=== PATIENT | female | born 1970 | race African-American/Black ===

== ENCOUNTER 2021-11-20 08:44 | Emergency (ER) | payer OTHER ==
[2021-11-20] MEDS ORDERED: METHYLPREDNISOLONE 125 MG INJ ONE (09:14)
[2021-11-20] MEDS ORDERED: LEVALBUTEROL 1.25 MG/3 ML NEB ONE (09:15)
[2021-11-20 09:31] LABS: Absolute Lymphocytes (CBC) 1.8 K/uL (0.7-4.9); Lymphocytes % 26.8 % (15.3-44.8); MCV 83.3 fL (80-100); MPV 8.3 fL (7.6-11.3); RBC Red Blood Cell Count 4.44 M/uL (3.86-4.86)
[2021-11-20 09:56] LABS: Potassium 3.6 mmol/L (3.5-5.1); Troponin High Sensitivity 4.1 pg/mL (<58.9)
--- NOTE | 2021-11-20 10:27 | RAD REPORT ---
EXAM DESCRIPTION: [facility] Single View11/20/2021 9:40 am CLINICAL HISTORY: Chest pain COMPARISON: none FINDINGS: The lungs appear clear of acute infiltrate. The heart is normal size IMPRESSION: No acute abnormalities displayed
--- NOTE | 2021-11-20 11:11 | RAD REPORT ---
EXAM DESCRIPTION: CT - Chest For Pe Angio - 11/20/2021 10:45 am CLINICAL HISTORY: Chest pain COMPARISON: None. TECHNIQUE: Dynamically enhanced axial 3 mm thick images of the chest were obtained during administra tion of <150> mL Isovue 370 IV contrast. Coronal and oblique reconstruction images were generated and reviewed. Exam utilizes a protocol for optimal evaluation of pulmonary arterial tree. Maximum intensity projections 3D imaging was utilized All CT scans are performed using dose optimization technique as appropriate and may include automated exposure control or mA/KV adjustment according to patient size. FINDINGS: The opacification of the pulmonary arteries is poor. A thoracic aortic aneurysm is not noted. A pleural effusion is not seen. A pericardial effusion is not seen. A lung consolidation is not present. IMPRESSION: The exam is nondiagnostic for detection of pulmonary embolus Clear lungs
--- NOTE | 2021-11-20 11:40 | ER ---
Nurse's Notes [facility] Name: Luly Cornejo Age: 51 yrs Sex: Female : 1970 Arrival Date: 11/20/2021 Time: 08:47 Bed 11 Private MD: Diagnosis: Acute bronchitis, unspecified Presentation: 11/20 08:53 Chief complaint: Patient states: i am coughing, wheezing, my head hurts. i have been tw2 coughing a couple of days. no fever. Coronavirus screen: cough unrelated to allergies, Client presents with at least one sign or symptom that may indicate coronavirus-19. Standard/surgical mask placed on the client. Provider contacted for isolation considerations. Ebola Screen: Patient denies travel to an Ebola-affected area in the 21 days before illness onset. Initial Sepsis Screen: Does the patient meet any 2 criteria? HR > 90 bpm. No. Patient's initial sepsis screen is negative. Does the patient have a suspected source of infection? No. Patient's initial sepsis screen is negative. Risk Assessment: Do you want to hurt yourself or someone else? Patient reports no desire to harm self or others. Note provider YAMILA Felix in triage room for assessment at this time. Onset of symptoms was November 20, 2021. 08:53 Method Of Arrival: Ambulatory tw2 08:53 Acuity: JACKIE 3 tw2 Triage Assessment: 08:57 General: Appears in no apparent distress. obese, well groomed, Behavior is calm, tw2 cooperative, appropriate for age. Pain: Complains of pain in back. EENT: Reports nasal congestion nasal discharge. Neuro: Level of Consciousness is awake, alert, obeys commands, Oriented to person, place, time, situation. Respiratory: Reports cough that is non-productive. Respiratory: Onset: The symptoms/episode began/occurred couple of days, the patient has mild shortness of breath. Musculoskeletal: Range of motion: intact in all extremities. 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 - Social history:: Smoking status: Patient reports the use of cigarette tobacco products, smokes one-half pack cigarettes per day. Screenin:58 Abuse screen: Denies threats or abuse. Nutritional screening: No deficits noted. tw2 Tuberculosis screening: No symptoms or risk factors identified. Fall Risk None identified. Assessment: 08:59 Cardiovascular: Rhythm is regular. Respiratory: Airway is patent Respiratory effort is tw2 even, unlabored, Respiratory pattern is regular, symmetrical, na. Vital Signs: 08:53 BP 128 / 98; Pulse 99; Resp 17; Temp 98.4(O); Pulse Ox 99% on R/A; Weight 79.83 kg; tw2 Height 5 ft. 4 in. (162.56 cm); 11:56 BP 136 / 82; Pulse 86; Resp 16; Pulse Ox 100% on R/A; Pain 2/10; bm7 08:53 Body Mass Index 30.21 (79.83 kg, 162.56 cm) tw2 ED Course: 08:47 Patient arrived in ED. am2 08:51 Antony Ryan PA is PHCP. cp 08:51 Cliff Mcnair DO is Attending Physician. cp 08:56 Triage completed. tw2 08:58 Arm band placed on. EKG completed in triage. Results shown to MD. tw2 09:02 Bed in low position. Call light in reach. color television console monitor on. Pulse ox on. NIBP on. tw2 09:11 Inserted saline lock: 20 gauge in right antecubital area, using aseptic technique. tw2 ,using aseptic technique. [facility]. 09:20 Olga Lidia Gutierrez, RN is Primary Nurse. iw 09:24 Influenza Screen (a \\T\\ B) Sent. kc6 09:24 COVID-19 SARS RT PCR (Document "Date of Onset" if Symptomatic) Sent. kc6 09:24 Basic Metabolic Panel Sent. kc6 09:24 CBC with Diff Sent. kc6 09:24 D-Dimer Sent. kc6 09:24 NT PRO-BNP Sent. kc6 09:24 Troponin HS Sent. kc6 09:42 XRAY Chest (1 view) In Process Unspecified. EDMS 10:47 CT Chest For PE Angio In Process Unspecified. EDMS 11:56 No provider procedures requiring assistance completed. intact, bleeding controlled, No bm7 redness/swelling at site. Pressure dressing applied. Administered Medications: 09:13 Drug: SOLU-Medrol (methylPrednisoLONE) 125 mg Route: IVP; Site: right antecubital; tw2 11:55 Follow up: Response: No adverse reaction bm7 09:15 Drug: Xopenex (levalbuterol) (3) 1.25 mg Route: Inhalation; tw2 11:55 Drug: Aspirin Chewable Tablet 324 mg Route: PO; bm7 11:55 Follow up: Response: No adverse reaction bm7 Medication: 11:56 VIS not applicable for this client. bm7 Outcome: 11:40 Discharge ordered by MD. aditya 11:56 Discharged to home ambulatory. bm7 11:56 Condition: improved 11:56 Discharge instructions given to patient, Instructed on discharge instructions, follow up and referral plans. medication usage, Demonstrated understanding of instructions, follow-up care, medications, Prescriptions given X 4. 11:57 Patient left the ED. bm7 Signatures: Dispatcher [employer] EDMS Olga Lidia Gutierrez, RN RN Antony Chaney, YAMILA PA Keren Millard, RN RN tw2 Benita Friedman am2 Wanda Funk, RN RN bm7 Christiana Guy kc6
--- NOTE | 2021-11-20 11:41 | EDPHYS ---
Physician Documentation [facility] Name: Luly Cornejo Age: 51 yrs Sex: Female : 1970 Arrival Date: 11/20/2021 Time: 08:47 Bed 11 Private MD: ED Physician Cliff Mcnair HPI: 11/20 09:00 This 51 yrs old Female presents to ER via Ambulatory with complaints of Cough, Wheezing cp > 1 Year, Chest Pressure. 09:00 The patient or guardian reports cough, that is intermittent. cp 09:00 Onset: The symptoms/episode began/occurred 2 day(s) ago. cp 09:00 Severity of symptoms: in the emergency department the symptoms are unchanged, despite cp home interventions. Associated signs and symptoms: Pertinent positives: chest pain, with cough, wheezing, Pertinent negatives: diarrhea, fever, vomiting. 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 - Social history:: Smoking status: Patient reports the use of cigarette tobacco products, smokes one-half pack cigarettes per day. ROS: 09:05 Constitutional: Negative for body aches, chills, fever, poor PO intake. cp 09:05 Eyes: Negative for injury, pain, redness, and discharge. cp 09:05 ENT: Negative for ear pain, sinus congestion, difficulty swallowing, difficulty handling secretions. 09:05 Cardiovascular: Positive for chest pain, with cough, Negative for edema, palpitations. 09:05 Respiratory: Positive for cough, with no reported sputum, shortness of breath, at rest. wheezing. 09:05 Abdomen/GI: Negative for abdominal pain, vomiting, diarrhea, constipation. 09:05 Skin: Negative for rash. 09:05 Neuro: Negative for altered mental status, dizziness, headache, syncope, weakness. 09:05 All other systems are negative. Exam: 09:07 ECG was reviewed by the Attending Physician. cp 09:10 Head/Face: Normocephalic, atraumatic. cp 09:10 Constitutional: The patient appears in no acute distress, alert, awake, non-diaphoretic, non-toxic, well developed, well nourished. 09:10 Eyes: Periorbital structures: appear normal, Conjunctiva: normal, no exudate, no cp injection, Sclera: no appreciated abnormality, Lids and lashes: appear normal, bilaterally. 09:10 ENT: External ear(s): are unremarkable, Ear canal(s): are normal, clear, TM's: dullness, bilaterally, Nose: is normal, Mouth: Lips: moist, Oral mucosa: moist, Posterior pharynx: Airway: no evidence of obstruction, patent, Tonsils: no enlargement, no erythema, no exudate, swelling, is not appreciated, erythema, that is mild, exudate, is not appreciated, Voice: is normal. 09:10 Neck: ROM/movement: is normal, is supple, without pain, no range of motions limitations, no meningismus, Lymph nodes: no appreciated lymphadenopathy. 09:10 Chest/axilla: Inspection: normal. 09:10 Cardiovascular: Rate: normal, Rhythm: regular, Edema: is not appreciated, JVD: is not appreciated. 09:10 Respiratory: the patient does not display signs of respiratory distress, Respirations: labored breathing, that is mild, Breath sounds: bronchial sounds, that are mild, are heard diffusely, stridor, is not appreciated. 09:10 Abdomen/GI: Exam negative for discomfort, distension, guarding, Inspection: abdomen appears normal. 09:10 Back: pain, is absent, ROM is normal. 09:10 Skin: cellulitis, is not appreciated, no rash present. 09:10 Neuro: Orientation: to person, place \\T\\ time. Mentation: is normal, Motor: moves all fours, strength is normal, Sensation: is normal. Vital Signs: 08:53 BP 128 / 98; Pulse 99; Resp 17; Temp 98.4(O); Pulse Ox 99% on R/A; Weight 79.83 kg; tw2 Height 5 ft. 4 in. (162.56 cm); 11:56 BP 136 / 82; Pulse 86; Resp 16; Pulse Ox 100% on R/A; Pain 2/10; bm7 08:53 Body Mass Index 30.21 (79.83 kg, 162.56 cm) tw2 MDM: 09:04 Patient medically screened. cp 11:37 Data reviewed: vital signs, nurses notes, lab test result(s), EKG, radiologic studies, cp CT scan, plain films. ED course: VSS. Discussed results of labs, EKG and CT chest that returned non-diagnostic for PE. Will treat for acute bronchitis at this time, patient declines repeat chest CT. Recommend daily baby aspirin and f/u with pcp next 2-3 days. 11/20 08:58 Order name: Basic Metabolic Panel; Complete Time: 10:29 cp 11/20 10:29 Interpretation: Normal except: GLUC 112; GFR 78. cp 11/20 08:58 Order name: CBC with Diff; Complete Time: 09:43 cp 11/20 10:29 Interpretation: Normal except: RDW 18.7; EOSINOPHIL % 11.3; BASO% 1.5; EOSA 0.8. 11/20 08:58 Order name: D-Dimer; Complete Time: 10:29 cp 11/20 10:29 Interpretation: Abnormal: D-DIMER 582. cp 11/20 08:58 Order name: NT PRO-BNP; Complete Time: 10:29 cp 11/20 08:58 Order name: Troponin HS; Complete Time: 10:29 cp 11/20 09:07 Order name: COVID-19 SARS RT PCR (Document "Date of Onset" if Symptomatic); Complete cp Time: 11:22 11/20 08:58 Order name: XRAY Chest (1 view); Complete Time: 10:29 cp 11/20 08:58 Order name: EKG; Complete Time: 08:59 cp 11/20 08:58 Order name: Cardiac monitoring; Complete Time: 09:30 cp 11/20 09:07 Order name: Influenza Screen (a \\T\\ B); Complete Time: 10:29 cp 11/20 10:30 Order name: CT Chest For PE Angio; Complete Time: 11:22 cp 11/20 11:23 Interpretation: Report reviewed. 11/20 08:58 Order name: EKG - Nurse/Tech; Complete Time: 08:59 cp 11/20 08:58 Order name: IV Saline Lock; Complete Time: 09:24 cp 11/20 08:58 Order name: Labs collected and sent; Complete Time: 09:24 cp 11/20 08:58 Order name: O2 Per Protocol; Complete Time: 09:03 cp 11/20 08:58 Order name: O2 Sat Monitoring; Complete Time: : cp EC:07 Rate is 91 beats/min. Rhythm is regular. TN interval is normal. QRS interval is normal. cp QT interval is normal. T waves are Inverted in leads III, aVR. Interpreted by me. Reviewed by me. Administered Medications: 09:13 Drug: SOLU-Medrol (methylPrednisoLONE) 125 mg Route: IVP; Site: right antecubital; tw2 11:55 Follow up: Response: No adverse reaction bm7 09:15 Drug: Xopenex (levalbuterol) (3) 1.25 mg Route: Inhalation; tw2 11:55 Drug: Aspirin Chewable Tablet 324 mg Route: PO; bm7 11:55 Follow up: Response: No adverse reaction bm7 Disposition: 17:17 Co-signature as Attending Physician, Cliff CHAVEZ was present in the emergency ms3 department and available for consultation in the care of this patient.. Disposition Summary: 11/20/21 11:40 Discharge Ordered Location: Home cp Problem: new cp Symptoms: have improved cp Condition: Stable cp Diagnosis - Acute bronchitis, unspecified cp Followup: cp - With: Private Physician - When: 2 - 3 days - Reason: Recheck today's complaints Discharge Instructions: - Acute Bronchitis, Adult cp - Steps to Quit Smoking cp - Discharge Summary Sheet tw2 - Smoking Tobacco Information, Adult cp Forms: - Work release form tw2 - Medication Reconciliation Form cp - Thank You Letter cp - Antibiotic Education cp - Prescription Opioid Use cp Prescriptions: - Bromfed DM 2-30-10 mg/5 mL Oral syrup - take 10 milliliter by ORAL route every 6 hours; 180 milliliter; Refills: 0, cp Product Selection Permitted - albuterol sulfate 90 mcg/actuation Inhalation HFA aerosol inhaler - inhale 1 puff by INHALATION route every 4-6 hours; 1 Inhaler; Refills: 0, cp Product Selection Permitted - Zithromax Z-Darrell 250 mg Oral Tablet - take 1 tablet by ORAL route as directed for 5 days Day 1 - take two (2) tablets cp one time. Day 2, 3, 4 , 5 take one (1) tablet once daily.; 6 tablet; Refills: 0, Product Selection Permitted - Medrol (Darrell) 4 mg Oral Tablets, Dose Pack - take 1 tablet by ORAL route as directed - follow package instructions; 1 cp packet; Refills: 0, Product Selection Permitted Signatures: Dispatcher [employer] Antony Matthews PA PA cp Wise, Tara, RN RN tw2 Cliff Mcnair DO DO ms3 Wanda Funk RN RN bm7
[2021-11-20] MEDS ORDERED: ASPIRIN 81 MG CHEWABLE TABLET ONE (11:51)
[2021-11-20 13:02] VITALS: TEMP 98.4
[2021-11-20 13:11] VITALS: BP 136/82; O2SAT 100
== END 2021-11-20 11:57 | disposition home or self-care (01) ==
LOC: ER 08:44
DX: J20.9 Acute bronchitis, unspecified (principal); I10 Essential (primary) hypertension; F17.210 Nicotine dependence, cigarettes, uncomplicated; Z88.5 Allergy status to narcotic agent; Z20.822 Contact with and (suspected) exposure to COVID-19
CPT/HCPCS: 85025; 80048; 36415; 85379; 84484; 83880; 87804 ×2; 71275; 71045; U0003; Q9967; J2930

== ENCOUNTER 2021-12-08 21:52 | Emergency (ER) | payer OTHER ==
--- OUTSIDE RECORDS SUMMARY | 2021-12-08 21:56 | XMS REPORT | Continuity of Care Document ---
:1970 Author Organization [facility] t Address [address] [place] [address] Care Team Providers Name Role Phone MONTSERRAT JONES Attending Clinician Unavailable Sandeep Forbes Attending Clinician Sandeep Forbes Admitting Clinician Problems Condition Condition Condition Status Onset Resolution Last Treating Co mments Source Name Details Category Date Date Treatment Clinician Date ANEMIA ANEMIA Diagnosis Active 2017-08-20 Me moria Active 08-14 21:52:00 l 08/14/2017 00:00: Wai bloom [address] ANEMIA, ANEMIA, Diagnosis Active 2017-08-20 Memoria UNSPECIFIE UNSPECIFIE 21:52:00 l D D Active [facility] Allergies, Adverse Reactions, Alerts Allergy Allergy Status Severity Reaction(s) Onset Inactive Treating Comm ents Source Name Type Date Date Clinician codeine codeine Active Moderate Elisa Becerra Social History Social Habit Start Date Stop Date Quantity Comments Source Social History 2017-08-14 2017-08-14 Calvin urias 22:23:07 22:23:07 Medications Ordered Filled Start Stop Current Ordering Indication Dosage Frequency Signature Comments Components Source Medication Medication Date Date Medication? Clinician (SIG) Name Name ibuprofen Yes 800 mg = 1 Me moria 800 mg oral 5-25 tab, PO, l tablet 16:51: Q8H, Take Wai n 00 every 8 hours as needed for pain, # 30 tab, 0 Refill(s) tramadol Yes 50 mg = 1 Sudeep gerald hydrochlori 5-25 tab, PO, l de 50 MG 16:51: Q4H, PRN Roxi nn Oral Tablet 00 Pain, Take as needed for pain every 4-6 hours, # 25 tab, 0 Refill(s) ferrous Yes 325 mg = 1 Sudeep gerald sulfate 325 5-25 tab, PO, l mg oral 16:51: BID, give Roxi nn enteric 00 with coated orange tablet juice, # 60 tab, 1 Refill(s) Docusate Yes 100 mg = 1 Mem oria Sodium 100 5-25 cap, PO, l MG Oral 16:51: BID, # 60 Roxi nn Capsule 00 cap, 1 Refill(s) Sodium No 250 mL, Memoria Chloride 5-25 Rate: To l 0.9% 06:17: prime line Jay Em (titrate) 00 and flush 250 mL remaining blood products., Dosing Weight 67.182, kg, Route: IV, Total Volume: 250, Priority: Routine, Start Date: 08/15/17 1:17:00 CDT, Duration: 30 day, Stop date: 09/14/17 1:16:00 CDT, Replace Every: 24 hr Motrin No Notes: Memoria 5-25 (Same as: l 02:00: Motrin) Jay Em 00 "Do Not Crush" Take with food. Tylenol No Notes: Do Memor ia 5-25 not exceed l 00:34: 4 gm/day. Hernan 00 (Same as: Tylenol) Stadol No Notes: Memoria 5-25 (Same As: l 00:34: Stadol) Hernan 00 pneumococca No Notes: Sudeep gerald l capsular 5-24 (Same as: l polysacchar 22:24: Pneumovax H ermann adele type 1 56 23) vaccine / Refrigerat pneumococca e l capsular polysacchar adele type 10A vaccine / pneumococca l capsular polysacchar adele type 11A vaccine / pneumococca l capsular polysacchar adele type 12F vaccine / pneumococca l capsular polysacchar Vital Signs Vital Name Observation Time Observation Value Comments Source Respitory Rate 2017-08-15 17:00:00 Memori al Jay Em Systolic (mm Hg) 2017-08-15 17:00:00 Sudeep rial Hernan Diastolic (mm Hg) 2017-08-15 17:00:00 Mem orial [facility] Heart Rate 2017-08-15 17:00:00 [facility] Temperature Oral (F) 2017-08-15 17:00:00 98.3 F [facility] Jay Em Respitory Rate 2017-08-15 09:22:00 Memori al Jay Em Heart Rate 2017-08-15 09:22:00 [facility] Systolic (mm Hg) 2017-08-15 09:22:00 Sudeep rial Jay Em Diastolic (mm Hg) 2017-08-15 09:22:00 Mem orial [facility] Temperature Oral (F) 2017-08-15 09:22:00 98 F [facility] Jay Em Diastolic (mm Hg) 2017-08-15 09:00:00 Mem orial Jay Em Temperature Oral (F) 2017-08-15 09:00:00 98.3 F [facility] Heart Rate 2017-08-15 09:00:00 [facility] Jay Em Respitory Rate 2017-08-15 09:00:00 Memori al Jay Em Systolic (mm Hg) 2017-08-15 09:00:00 Sudeep rial [facility] Height 2017-08-14 22:25:00 162.56 cm [facility] Em BMI Calculated 2017-08-14 22:25:00 Memori al Jay Em Weight 2017-08-14 22:25:00 [facility] Jay Em Height 2017-08-14 22:17:00 162.56 cm [facility] BMI Calculated 2017-08-14 22:17:00 Mem[facility] al [facility] Weight 2017-08-14 22:17:00 [facility] Procedures Procedure Date / Time Performed Performing Clinician Sour e Bilateral tubal ligation Memoria l Hernan Encounters Start End Encounter Admission Attending Care Care Encounter Source Date/Time Date/Time Type Type Clinicians Facility Department ID 2020-01-31 2020-01-31 Emergency E ALCANTER, TAMARA [facility] [id number] [facility] 02:22:00 04:44:00 MONTSERRAT 2018-10-02 2018-10-02 Emergency E [facility] [id number] [facility] 15:13:00 15:13:00 2017-08-14 2017-08-15 Inpatient [facility] [id number] Memoria 21:59:00 18:15:00 r [facility] 45 l [facility] 2017-08-14 2017-08-15 [facility] [id number] 16:59:00 13:15:00 Sandeep Dev 44 Results Test Description Test Time Test Comments Results Result Comments Source [facility] 2017-08-15 14:29:00 Test Item Value Reference Range Interpretation Comme nts S Preg (test code = S Preg) Negative *NA*(08/15/17 9:29 AM) [place] [id number] 14:29:00 Test Item Value Reference Range Interpretation Comments MCV (test code = MCV) 63.1 80.0-98.0 [place] [id number] 14:29:00 Test Item Value Reference Range Interpretation Comments Hct (test code = Hct) 27.4 36.0-48.0 [facility]htrjheOUVXUPTRBV8029-23-96 14:29:00 Test Item Value Reference Range Interpretation Comments MCHC (test code = MCHC) 32.1 32.0-36.0 [facility] AllianceYqjnphjFTDPICVOCY4942-10-26 14:29:00 Test Item Value Reference Range Interpretation Comments MCH (test code = MCH) 20.3 pg 27.0-31.0 [facility] AllianceRzbbqokWEBQVOWAGS4327-31-40 14:29:00 Test Item Value Reference Range Interpretation Comments WBC (test code = WBC) 10.3 3.7-10.4 [facility] AllianceCcyfogxQMOPINFEJH5519-13-81 14:29:00 Test Item Value Reference Range Interpretation Comments Hgb (test code = Hgb) 8.8 12.0-16.0 [facility] AllianceBiainloIGUVWJLVGT2877-83-81 14:29:00 Test Item Value Reference Range Interpretation Comments RBC (test code = RBC) 4.34 4.20-5.40 [place] [id number] 14:29:00 Test Item Value Reference Range Interpretation Comments Platelet (test code = Platelet) 193 133-450 [facility] AllianceIenocqzLBEGDNMOHK8011-22-28 14:29:00 Test Item Value Reference Range Interpretation Comments RDW (test code = RDW) 22.5 11.5-14.5 [place] 608078-05-25 14:29:00 Test Item Value Reference Range Interpretation Comments MPV (test code = MPV) 8.9 7.4-10.4 [facility] AllianceVlbrslhSQJNEHMJJQ8789-70-43 14:29:00 Test Item Value Reference Range Interpretation Comments Microcyte (test code = 3+ *NA*(08/15/17 9:29 Microcyte) AM) [facility] AllianceWaooxhwYIWRZALHZC8502-32-61 14:29:00 Test Item Value Reference Range Interpretation Comments Basophils # (test code 0.1 See_Comment [Aut omated message] The = Basophils #) system which generated this result tra nsmitted reference range : <=0.2. The reference r almaz was not used to int erpret this result as normal/abnormal . [facility] AllianceUyoybgsIXBBDSGJHV3616-38-51 14:29:00 Test Item Value Reference Range Interpretation Comments Monocytes # (test code 0.7 See_Comment [Aut omated message] The = Monocytes #) system which generated this result tra nsmitted reference range : <=0.8. The reference r almaz was not used to int erpret this result as normal/abnormal . [facility] AllianceYbbinohYTHJPIWZKC3213-33-18 14:29:00 Test Item Value Reference Range Interpretation Comments Segs-Bands # (test code = Segs-Bands #) 9.3 1.5-8.1 [facility] AllianceBxumwwyEDXZNRXMYC9381-80-83 14:29:00 Test Item Value Reference Range Interpretation Comments Lymphocytes # (test code = Lymphocytes 0.2 1.0-5.5 #) [facility] AllianceGffkajnGFGSWMJXMQ5756-73-37 14:29:00 Test Item Value Reference Range Interpretation Comments Eosinophils (test code = 0.4 See_Comment [A utomated message] The Eosinophils) system which ge nerated this result tra nsmitted reference range : <=4.0. The reference r almaz was not used to int erpret this result as normal/abnormal . [facility] AllianceVpsmiaoQNBPBSKNNV4182-90-37 14:29:00 Test Item Value Reference Range Interpretation Comments Monocytes (test code = Monocytes) 6.5 2.0-12.0 [facility] AllianceUgitadyJTKABHSAAV8247-17-11 14:29:00 Test Item Value Reference Range Interpretation Comments Basophils (test code = 0.6 See_Comment [Aut omated message] The Basophils) system which ge nerated this result tra nsmitted reference range : <=1.0. The reference r almaz was not used to int erpret this result as normal/abnormal . [facility] AllianceOmyabaxCMBGFTOKOT8883-02-84 14:29:00 Test Item Value Reference Range Interpretation Comments Lymphocytes (test code = Lymphocytes) 2.2 20.0-40.0 [facility] CenterPxylfnkUCINVBRZSE3905-07-29 14:29:00 Test Item Value Reference Range Interpretation Comments Segs (test code = Segs) 90.3 45.0-75.0 [facility] Center[facility]apat[facility] [id number] 07:41:00 Test Item Value Reference Range Interpretation Comments RBC product (test code Product available = RBC product) 1(08/15/17 2:41 AM) [facility] [id number] 00:56:00 Test Item Value Reference Range Interpretation Comments ABO/Rh (test code = ABO/Rh) O POS [facility] [id number] 00:56:00 Test Item Value Reference Range Interpretation Comments Antibody Scrn (test Negative (08/14/17 7:56 code = Antibody Scrn) PM) [facility] [employer] [id number] 00:56:00 Test Item Value Reference Range Interpretation Comments eGFR (test code = eGFR) 102 [facility] [employer] [id number] 00:56:00 Test Item Value Reference Range Interpretation Comments A/G Ratio (test code = A/G Ratio) 1.0 1 0.7-1.6 [facility] [id number] 00:56:00 Test Item Value Reference Range Interpretation Comments Globulin (test code = Globulin) 3.7 2.7-4.2 [facility] [employer] [id number] 00:56:00 Test Item Value Reference Range Interpretation Comments AST (test code = AST) 9 See_Comment [Auto mated message] The system which ge nerated this result transmit yulisa reference range : <=37. The reference range was not used to interpr et this result as loi l/abnormal. [facility] [employer] [id number] 00:56:00 Test Item Value Reference Range Interpretation Comments ALT (test code = ALT) 19 See_Comment [Auto mated message] The system which ge nerated this result transmit yulisa reference range : <=65. The reference range was not used to interpr et this result as loi l/abnormal. [facility] [employer] [id number] 00:56:00 Test Item Value Reference Range Interpretation Comments AGAP (test code = AGAP) 7.8 10.0-20.0 [facility]2018-05-25 00:56:00 Test Item Value Reference Range Interpretation Comments Bili Total (test code = Bili Total) 0.3 0.2-1.3 [facility]2018-05-25 00:56:00 Test Item Value Reference Range Interpretation Comments Alk Phos (test code = Alk Phos) 46 39-136 [facility]2018-05-25 00:56:00 Test Item Value Reference Range Interpretation Comments B/C Ratio (test code = B/C Ratio) 15 1 6-25 [facility]2018-05-25 00:56:00 Test Item Value Reference Range Interpretation Comments Chloride Lvl (test code = Chloride Lvl) 107 95-109 [facility]2018-05-25 00:56:00 Test Item Value Reference Range Interpretation Comments Calcium Lvl (test code = Calcium Lvl) 8.6 8.5-10.5 [facility]2018-05-25 00:56:00 Test Item Value Reference Range Interpretation Comments CO2 (test code = CO2) 24 24-32 [facility]2018-05-25 00:56:00 Test Item Value Reference Range Interpretation Comments Albumin Lvl (test code = Albumin Lvl) 3.6 3.5-5.0 [facility]2018-05-25 00:56:00 Test Item Value Reference Range Interpretation Comments Total Protein (test code = Total 7.3 6.4-8.4 Protein) [facility]2018-05-25 00:56:00 Test Item Value Reference Range Interpretation Comments Sodium Lvl (test code = Sodium Lvl) 135 135-145 [facility]2018-05-25 00:56:00 Test Item Value Reference Range Interpretation Comments Creatinine Lvl (test code = Creatinine 0.80 0.50-1.40 Lvl) [facility]2018-05-25 00:56:00 Test Item Value Reference Range Interpretation Comments Potassium Lvl (test code = Potassium 3.8 3.5-5.1 Lvl) [facility]2018-05-25 00:56:00 Test Item Value Reference Range Interpretation Comments BUN (test code = BUN) 12 7- [facility]2018-05-25 00:56:00 Test Item Value Reference Range Interpretation Comments Glucose Lvl (test code = Glucose Lvl) 112 70-99 [facility] AllianceFpxrfosOFEIHAXXEL8810-25-11 00:56:00 Test Item Value Reference Range Interpretation Comments Microcyte (test code = 3+ *ABN*(08/14/17 Microcyte) 7:56 PM) [facility] AlliancePjjvedwDKEKKZCQXY5740-57-96 00:56:00 Test Item Value Reference Range Interpretation Comments Plt Morph (test code = Normal (08/14/17 7:56 Plt Morph) PM) [facility] AllianceSuoykmbFWXRTPQDTZ3247-88-20 00:56:00 Test Item Value Reference Range Interpretation Comments Monocytes (test code = Monocytes) 10.0 2.0-12.0 [facility] AllianceNiruhjgHCOKEZIUQT8675-87-00 00:56:00 Test Item Value Reference Range Interpretation Comments Eosinophils (test code = 4.0 See_Comment [A utomated message] The Eosinophils) system which ge nerated this result tra nsmitted reference range : <=4.0. The reference r almaz was not used to int erpret this result as normal/abnormal . [facility] AllianceHrajuziYKZFOFUVAF4401-17-49 00:56:00 Test Item Value Reference Range Interpretation Comments Lymphocytes (test code = Lymphocytes) 29.0 20.0-40.0 [facility] AllianceNzzplfhOROUAFUEPP2620-49-96 00:56:00 Test Item Value Reference Range Interpretation Comments Atypical Lymphs (test code = Atypical 0.0 Lymphs) [facility] AllianceCvoldpsRFBKABIBHK8367-25-06 00:56:00 Test Item Value Reference Range Interpretation Comments Monocytes # (test code 0.7 See_Comment [Aut omated message] The = Monocytes #) system which generated this result tra nsmitted reference range : <=0.8. The reference r almaz was not used to int erpret this result as normal/abnormal . [facility] AllianceDcbdehcWVHLOHSBBV8501-72-86 00:56:00 Test Item Value Reference Range Interpretation Comments Segs (test code = Segs) 57.0 45.0-75.0 [facility] AllianceOiwdgfqSHFJQATOWL8673-64-55 00:56:00 Test Item Value Reference Range Interpretation Comments Eosinophils # (test code 0.3 See_Comment [A utomated message] The = Eosinophils #) system whic h generated this result tra nsmitted reference range : <=0.5. The reference r almaz was not used to int erpret this result as normal/abnormal . [facility] AllianceVomurydSHHGEEJEEB3185-39-45 00:56:00 Test Item Value Reference Range Interpretation Comments Bands (test code = 0.0 See_Comment [Automat ed message] The Bands) system which ge nerated this result transmit yulisa reference range : <=11.0. The reference r almaz was not used to interpr et this result as loi l/abnormal. [facility] AllianceQnqlyppLJHHLNESZM1161-42-53 00:56:00 Test Item Value Reference Range Interpretation Comments Segs-Bands # (test code = Segs-Bands #) 3.9 1.5-8.1 [facility] AllianceRojwdvgZCVGTWDFVU5668-69-97 00:56:00 Test Item Value Reference Range Interpretation Comments Lymphocytes # (test code = Lymphocytes 2.0 1.0-5.5 #) [facility] AllianceIlavgqwHULUXBKKYO2832-49-97 00:56:00 Test Item Value Reference Range Interpretation Comments MPV (test code = MPV) 8.5 7.4-10.4 [facility] AllianceTaevtwaPTPULUXZDK9054-17-26 00:56:00 Test Item Value Reference Range Interpretation Comments Platelet (test code = Platelet) 294 133-450 [facility] AllianceGquweftKRWHIHTEOK1258-25-31 00:56:00 Test Item Value Reference Range Interpretation Comments RDW (test code = RDW) 20.3 11.5-14.5 [facility] AllianceHgdcylwFIPUPZZTZT2869-64-96 00:56:00 Test Item Value Reference Range Interpretation Comments Hgb (test code = Hgb) 7.1 12.0-16.0 [facility] AllianceLpwihcgLYEPPEZOST6575-89-79 00:56:00 Test Item Value Reference Range Interpretation Comments RBC (test code = RBC) 3.79 4.20-5.40 [facility] AllianceNifwxwyIECLAFKKRQ7445-30-86 00:56:00 Test Item Value Reference Range Interpretation Comments MCHC (test code = MCHC) 30.8 32.0-36.0 [facility] AllianceGbuestuBIPLJRRIXE0839-21-31 00:56:00 Test Item Value Reference Range Interpretation Comments MCH (test code = MCH) 18.8 pg 27.0-31.0 [facility] AllianceThxwaftMNTGUCVHUQ1169-36-12 00:56:00 Test Item Value Reference Range Interpretation Comments MCV (test code = MCV) 61.1 80.0-98.0 [facility] AllianceCjquwmrTFSZBWOBAS5087-95-09 00:56:00 Test Item Value Reference Range Interpretation Comments Hct (test code = Hct) 23.2 36.0-48.0 [facility] AllianceHgaksnlHYDFFRYFFF5710-62-95 00:56:00 Test Item Value Reference Range Interpretation Comments WBC (test code = WBC) 6.9 3.7-10.4 [facility]
[2021-12-08] MEDS ORDERED: PROMETHAZINE INJ 25 MG/ML AMP ONE (23:12)
[2021-12-08] MEDS ORDERED: METHYLPREDNISOLONE 40 MG INJ ONE (23:12)
[2021-12-08] MEDS ORDERED: ALBUTEROL 2.5 MG/3 ML NEB SOL ONE (23:12)
[2021-12-08] MEDS ORDERED: IPRATROPIUM BROM 0.5MG/2.5ML ONE (23:12)
--- NOTE | 2021-12-08 23:24 | RAD REPORT ---
EXAM DESCRIPTION: [facility] Single View12/08/2021 11:03 pm CLINICAL HISTORY: Shortness of breath COMPARISON: October 2021 FINDINGS: The lungs appear clear of acute infiltrate. The heart is normal size IMPRESSION: No acute abnormalities displayed
[2021-12-08 23:32] LABS: Absolute Lymphocytes (CBC) 1.5 K/uL (0.7-4.9); Hematocrit 34.8 % (36.0-45.0); Lymphocytes % 15.6 % (15.3-44.8); MCV 83.7 fL (80-100); MPV 8.3 fL (7.6-11.3); RBC Red Blood Cell Count 4.16 M/uL (3.86-4.86)
[2021-12-08 23:39] LABS: Protime INR 0.94
[2021-12-08 23:52] LABS: ALT/SGPT 20 U/L (12-78); AST/SGOT 10 U/L (15-37); Albumin 3.6 g/dL (3.4-5.0); Alkaline Phosphatase 81 U/L (45-117); BUN Blood Urea Nitrogen 13 mg/dL (7-18); Bicarbonate 26 mmol/L (21-32); Bilirubin Total 0.2 mg/dL (0.2-1.0); Glomerular Filtration Rate 85 ml/min (=/>90); Glucose Level 109 mg/dL (74-106); Magnesium 2.1 mg/dL (1.8-2.4); NT PRO-BNP 66 pg/mL (<125); Potassium 3.7 mmol/L (3.5-5.1); Protein, Total 7.5 g/dL (6.4-8.2); Sodium Level 138 mmol/L (136-145); Troponin High Sensitivity 3.9 pg/mL (<58.9)
[2021-12-08 23:53] LABS: Bilirubin Direct < 0.1 mg/dL (0-0.2)
--- NOTE | 2021-12-09 02:31 | ER ---
Nurse's Notes [facility] Name: Luly Cornejo Age: 51 yrs Sex: Female : 1970 Arrival Date: 12/08/2021 Time: 21:54 Bed 26 Private MD: Diagnosis: Cough;Shortness of breath Presentation: 12/08 22:06 Chief complaint: Cough, chest tightness, and SOB x 1 week, worse over last 2 days. hb Denies fever/N/V/D. Coronavirus screen: Client presents with at least one sign or symptom that may indicate coronavirus-19. Standard/surgical mask placed on the client. Provider contacted for isolation considerations. Ebola Screen: No symptoms or risks identified at this time. Risk Assessment: Do you want to hurt yourself or someone else? Patient reports no desire to harm self or others. Onset of symptoms was December 02, 2021. 22:06 Method Of Arrival: Ambulatory hb 22:06 Acuity: JACKIE 3 hb 22:23 Initial Sepsis Screen: Does the patient meet any 2 criteria? No. Patient's initial kb3 sepsis screen is negative. Does the patient have a suspected source of infection? No. Patient's initial sepsis screen is negative. Triage Assessment: 22:23 General: Appears in no apparent distress. Behavior is calm, cooperative. Pain: Denies kb3 pain. Respiratory: Reports shortness of breath cough that is labored breathing pain with cough Onset: The symptoms/episode began/occurred gradually, the patient has mild shortness of breath. 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 - Social history:: Smoking status: Patient reports the use of cigarette tobacco products, smokes one-half pack cigarettes per day. Screenin:30 Abuse screen: Denies threats or abuse. Denies injuries from another. Nutritional kb3 screening: No deficits noted. Tuberculosis screening: No symptoms or risk factors identified. Fall Risk None identified. Assessment: 22:30 General: Appears in no apparent distress. uncomfortable, ill, Behavior is calm, kb3 cooperative, Received care of pt from triage. Pt is AAO x4, family at bedside. Pt reports she was diagnosed with bronchitis in this ED 1 week ago and the medications prescribed are not helping. Pt reports non-stop coughing with no relief from bromfed cough medication. Denies fever, chills. Reports chest pain/pressure, worse with cough, deep breathing, reproducible with palpation.. 22:30 Cardiovascular: Reports chest pain, Heart tones present Capillary refill < 3 seconds kb3 Patient's skin is warm and dry. Pulses are 2+ in right radial artery and left radial artery Rhythm is sinus rhythm. Respiratory: Reports shortness of breath cough that is air hunger labored breathing Airway is patent Respiratory effort is labored, Breath sounds with wheezes bilaterally. the patient has moderate shortness of breath. 12/09 02:59 Reassessment: Patient states feeling better. Patient states symptoms have improved. tw5 Vital Signs: 12/08 22:06 BP 137 / 91; Pulse 90; Resp 24; Temp 98.4; Pulse Ox 97% on R/A; Weight 80.74 kg; Height hb 5 ft. 4 in. (162.56 cm); Pain 7/10; 23:15 BP 112 / 79; Pulse 85; Resp 24; Pulse Ox 99% ; kb3 12/09 02:59 Pulse 83; Resp 18; Pulse Ox 96% ; tw5 12/08 22:06 Body Mass Index 30.55 (80.74 kg, 162.56 cm) hb ED Course: 12/08 21:54 Patient arrived in ED. bp1 22:09 Triage completed. hb 22:09 Arm band placed on. hb 22:11 Alecia Smith, RN is Primary Nurse. kb3 22:30 Patient has correct armband on for positive identification. Bed in low position. Call kb3 light in reach. Side rails up X2. Warm blanket given. 22:40 Antony Ryan PA is PHCP. cp 22:40 Antony Pierce MD is Attending Physician. cp 23:05 XRAY Chest (1 view) In Process Unspecified. EDMS 23:15 No provider procedures requiring assistance completed. Inserted saline lock: 20 gauge kb3 in right antecubital area, using aseptic technique. Blood collected. 23:52 Troponin HS Sent. tw5 23:52 Basic Metabolic Panel Sent. tw5 23:52 LFT's Sent. tw5 23:52 Magnesium Sent. tw5 23:52 NT PRO-BNP Sent. tw5 12/09 00:41 LAB Add On Sent. tw5 01:37 CT Chest For PE Angio In Process Unspecified. EDMS 02:29 Jerrod Rey MD is Referral Physician. cp 02:59 IV discontinued, intact, bleeding controlled, No redness/swelling at site. Pressure tw5 dressing applied. Administered Medications: 12/08 23:17 Drug: Phenergan (promethazine) 12.5 mg Route: IVP; Site: right antecubital; 3 12/09 00:02 Follow up: Response: No adverse reaction; Other 3 12/08 23:20 Drug: Albuterol - atroVENT (ipratropium) (3:1) (2.5 mg - 0.5 mg) 3 ml Route: Nebulizer; 3 12/09 00:02 Follow up: Response: No adverse reaction; Wheezing diminished [facility] 12/08 23:20 Drug: SOLU-Medrol (methylPrednisoLONE) 80 mg Route: IVP; Site: right antecubital; 3 12/09 00:02 Follow up: Response: No adverse reaction kb3 02:58 Drug: Phenergan (promethazine) -Codeine Liquid (6.25mg - 10mg / 5mL) 10 ml Route: PO; tw5 02:59 Follow up: Response: Adverse reaction, Physician notified; Medication administered at tw5 discharge. Medication: 12/08 22:30 VIS not applicable for this client. kb3 Outcome: 12/09 02:30 Discharge ordered by . cp 02:59 Discharged to home ambulatory, with family. tw5 02:59 Condition: improved 02:59 Discharge instructions given to patient, Instructed on discharge instructions, follow up and referral plans. Demonstrated understanding of instructions, follow-up care, medications, Prescriptions given X 3. 03:04 Patient left the ED. tw5 Signatures: Dispatcher [employer] EDUT Antony Ryan PA PA cp Baxter, Heather, RN RN Wanda Yarbrough Tiffany tw5 Alecia Smith RN RN kb3 Corrections: (The following items were deleted from the chart) 09/17 23:28 23:27 Cardiovascular: Reports chest pain, Heart tones present Capillary refill < 3 kb3 seconds Patient's skin is warm and dry. Pulses are 2+ in right radial artery and left radial artery Rhythm is sinus rhythm kb3 23:27 Respiratory: Reports shortness of breath cough that is air hunger labored kb3 breathing Airway is patent Respiratory effort is labored, Breath sounds with wheezes bilaterally. the patient has moderate shortness of breath kb3
--- NOTE | 2021-12-09 02:31 | EDPHYS ---
Physician Documentation [facility] Name: Luly Cornejo Age: 51 yrs Sex: Female : 1970 Arrival Date: 12/08/2021 Time: 21:54 Bed 26 Private MD: ED Physician Antony Pierce HPI: 12/08 22:50 This 51 yrs old Black Female presents to ER via Ambulatory with complaints of Breathing cp Difficulty, Cough. 22:50 The patient has shortness of breath at rest. Onset: The symptoms/episode began/occurred cp 1 week(s) ago, and became worse 2 day(s) ago. Duration: The symptoms are continuous, and are steadily getting worse. Associated signs and symptoms: Pertinent positives: chest pain, non-productive cough, Pertinent negatives: productive cough, diaphoresis, fever, hemoptysis. Severity of symptoms: in the emergency department the symptoms are unchanged despite home interventions. 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 - Social history:: Smoking status: Patient reports the use of cigarette tobacco products, smokes one-half pack cigarettes per day. ROS: 22:55 Constitutional: Negative for body aches, chills, fever, poor PO intake. cp 22:55 Eyes: Negative for injury, pain, redness, and discharge. cp 22:55 Cardiovascular: Positive for chest pain, with cough, Negative for edema, palpitations. 22:55 Respiratory: Positive for cough, "sounds productive", shortness of breath, at rest. wheezing. 22:55 Neck: Negative for pain with movement, pain at rest, stiffness. cp 22:55 Abdomen/GI: Negative for vomiting, diarrhea, constipation. 22:55 Back: Negative for injury or acute deformity, radiated pain. 22:55 : Negative for urinary symptoms. 22:55 Neuro: Negative for altered mental status, headache, weakness. 22:55 All other systems are negative. Exam: 22:57 ECG was reviewed by the Attending Physician. cp 23:00 Constitutional: The patient appears in no acute distress, alert, awake, cp non-diaphoretic, non-toxic, well developed, well nourished, uncomfortable. 23:00 Head/Face: Normocephalic, atraumatic. cp 23:00 Eyes: Periorbital structures: appear normal, Pupils: equal, round, and reactive to cp light and accomodation, Extraocular movements: intact throughout, Conjunctiva: normal, no exudate, no injection, Sclera: no appreciated abnormality, Lids and lashes: appear normal, bilaterally. 23:00 ENT: External ear(s): are unremarkable, Ear canal(s): are normal, clear, TM's: cp dullness, bilaterally, Nose: is normal, Mouth: Lips: moist, Oral mucosa: moist, Posterior pharynx: Airway: no evidence of obstruction, patent, swelling, is not appreciated, erythema, is not appreciated, exudate, is not appreciated. 23:00 Neck: ROM/movement: is normal, is supple, without pain, no range of motions limitations, no meningismus. 23:00 Chest/axilla: Inspection: normal. 23:00 Cardiovascular: Rate: normal, Rhythm: regular, Edema: is not appreciated, JVD: is not appreciated. 23:00 Respiratory: the patient does not display signs of respiratory distress, Respirations: labored breathing, that is mild, Breath sounds: bronchial sounds, that are mild, are heard diffusely, decreased breath sounds, are not appreciated, stridor, is not appreciated, wheezing: that is mild, is heard diffusely. 23:00 Abdomen/GI: Inspection: distension, Palpation: abdomen is soft and non-tender, in all quadrants. 23:00 Back: CVA tenderness, is absent. 23:00 Skin: cellulitis, is not appreciated, no rash present. 23:00 Neuro: Orientation: to person, place \\T\\ time. Mentation: is normal, Motor: moves all fours, strength is normal, Sensation: is normal. Vital Signs: 22:06 BP 137 / 91; Pulse 90; Resp 24; Temp 98.4; Pulse Ox 97% on R/A; Weight 80.74 kg; Height hb 5 ft. 4 in. (162.56 cm); Pain 7/10; 23:15 BP 112 / 79; Pulse 85; Resp 24; Pulse Ox 99% ; kb3 12/09 02:59 Pulse 83; Resp 18; Pulse Ox 96% ; tw5 12/08 22:06 Body Mass Index 30.55 (80.74 kg, 162.56 cm) hb MDM: 12/08 22:48 Patient medically screened. cp 23:00 Differential diagnosis: asthma, Bronchitis CHF exacerbation, Chronic Obstructive cp Pulmonary Disease Myocardial Infarction pneumonia, Pneumothorax pulmonary edema, Pulmonary Embolism Sepsis Unstable Angina. 12/09 02:30 Data reviewed: vital signs, nurses notes, lab test result(s), EKG, radiologic studies, cp CT scan, plain films. 02:30 Antibiotic administration: Not indicated, the patient does not have an appreciated cp infiltrate. Test interpretation: by ED physician or midlevel provider: ECG, plain radiologic studies. Counseling: I had a detailed discussion with the patient and/or guardian regarding: the historical points, exam findings, and any diagnostic results supporting the discharge/admit diagnosis, lab results, radiology results, the need for outpatient follow up, a medical imaging director, to return to the emergency department if symptoms worsen or persist or if there are any questions or concerns that arise at home. Response to treatment: the patient's symptoms have markedly improved after treatment, and as a result, I will discharge patient. 12/08 22:41 Order name: Basic Metabolic Panel; Complete Time: 00:24 12/08 22:41 Order name: CBC with Diff; Complete Time: 00:24 12/08 22:41 Order name: LFT's; Complete Time: 00:24 12/08 22:41 Order name: Magnesium; Complete Time: 00:24 12/08 22:41 Order name: NT PRO-BNP; Complete Time: 00:24 cp 12/08 22:41 Order name: PT-INR; Complete Time: 00:24 12/08 22:41 Order name: Troponin HS; Complete Time: 00:24 12/08 22:41 Order name: XRAY Chest (1 view); Complete Time: 00:24 cp 12/09 00:26 Order name: LAB Add On 12/09 00:26 Order name: D-Dimer; Complete Time: 01:28 12/09 00:44 Order name: CT Chest For PE Angio 12/08 22:41 Order name: EKG; Complete Time: 22:42 12/08 22:41 Order name: Cardiac monitoring; Complete Time: 23: 12/08 22:41 Order name: EKG - Nurse/Tech; Complete Time: : 12/08 22:41 Order name: IV Saline Lock; Complete Time: : 12/08 22:41 Order name: Labs collected and sent; Complete Time: : 12/08 22:41 Order name: O2 Per Protocol; Complete Time: : 12/08 22:41 Order name: O2 Sat Monitoring; Complete Time: : EC/17 22:57 Rate is 85 beats/min. Rhythm is regular. VA interval is normal. QRS interval is normal. cp QT interval is normal. T waves are Inverted in lead aVR. Interpreted by me. Reviewed by me. Administered Medications: :17 Drug: Phenergan (promethazine) 12.5 mg Route: IVP; Site: right antecubital; [facility] 12/09 00:02 Follow up: Response: No adverse reaction; Other [facility] 12/08 23:20 Drug: Albuterol - atroVENT (ipratropium) (3:1) (2.5 mg - 0.5 mg) 3 ml Route: Nebulizer; [facility] 12/09 00:02 Follow up: Response: No adverse reaction; Wheezing diminished [facility] 12/08 23:20 Drug: SOLU-Medrol (methylPrednisoLONE) 80 mg Route: IVP; Site: right antecubital; [facility] 12/09 00:02 Follow up: Response: No adverse reaction [facility] 02:58 Drug: Phenergan (promethazine) -Codeine Liquid (6.25mg - 10mg / 5mL) 10 ml Route: PO; tw5 02:59 Follow up: Response: Adverse reaction, Physician notified; Medication administered at tw5 discharge. Disposition Summary: 12/09/21 02:30 Discharge Ordered Location: Home cp Problem: an ongoing problem cp Symptoms: have improved cp Condition: Stable cp Diagnosis - Cough cp - Shortness of breath cp Followup: cp - With: Jerrod Rey MD - When: 2 - 3 days - Reason: Recheck today's complaints Discharge Instructions: - Discharge Summary Sheet cp - Shortness of Breath, Adult cp - Cough, Adult cp Forms: - Medication Reconciliation Form cp - Thank You Letter cp - Antibiotic Education cp - Prescription Opioid Use cp Prescriptions: - Prednisone 20 mg Oral Tablet - take 3 tablet by ORAL route once daily for 5 days; 15 tablet; Refills: 0, cp Product Selection Permitted - Guaifenesin AC 10-100 mg/5 mL Oral Liquid - take 10 milliliters by ORAL route every 6 hours As needed; 200 milliliter; cp Refills: 0, Product Selection Permitted - Flovent HFA 110 mcg/actuation Inhalation HFA aerosol inhaler - inhale 1 puff by INHALATION route 2 times per day; 1 Inhaler; Refills: 0, cp Product Selection Permitted Signatures: Dispatcher [employer] EDMS Antony Ryan PA PA cp Baxter, Heather, RN RN Bernadette Desouza tw5 Alecia Smith RN RN kb3
[2021-12-09] MEDS ORDERED: PROMETH/COD 6.25/10MG SYRUP 5ML ONE (03:02)
--- NOTE | 2021-12-09 15:55 | EKG ---
Test Date: 2021-12-08 Test Time: 22:52:43 Grievance Coordinator: TOÑO MEASUREMENT RESULTS: Intervals: Rate: 85 OH: 150 QRSD: 76 QT: 366 QTc: 435 Peerless: P: 66 OH: 150 QRS: 45 T: 40 INTERPRETIVE STATEMENTS: Normal sinus rhythm Septal infarct, age undetermined Abnormal ECG Compared to ECG 11/20/2021 09:02:15 Myocardial infarct finding now present Fusion complex(es) no longer present Ventricular premature complex(es) no longer present T-wave abnormality no longer present Possible ischemia no longer present Electronically Signed On 12-09-21 15:54:20 CDT by Parveen Leiva
--- NOTE | 2021-12-10 10:12 | RAD REPORT ---
EXAM DESCRIPTION: CT - Chest For Pe Angio - 12/09/2021 1:35 am CLINICAL HISTORY: 51 years, Female, shortness of breath COMPARISON: 11/20/2021 TECHNIQUE: Multiple transaxial tomograms of the chest were obtained from the lung apices through the lung bases utilizing 2 mm slice thickness at 2 mm interval reconstruction after the administration o f large bolus of IV contrast for complete opacification of the pulmonary arteries. Subsequent 3-D maximum intensity projection images were generated in the coronal and sagittal plane f or review. This exam was performed according to our departmental dose-optimization protocol, which includes auto mated exposure control, adjustment of the mA and/or kV according to patient size and/or use of iterat melba reconstruction technique. FINDINGS: The lungs parenchyma demonstrate mild elevation of the right hemidiaphragm with compressiv e atelectatic changes right lung base. No masses, nodules and/or consolidations are identified. The trachea mainstem bronchus demonstrate to be normal. There is no significant pericardial or pleura l effusions. The thoracic aorta demonstrate to be within normal limits. There is no evidence for significant disse ction/or aneurysm. The heart is normal in size. No evidence for right ventricular strain. There are n o significant coronary artery calcified indications There is no significant mediastinal and/or hilar lymphadenopathy. The axillary regions demonstrate to be clear. Pulmonary arteries demonstrate to be normal, no intraluminal defect are seen that would suggest pulmo nary embolus. The bone windows demonstrate no significant skeletal lesions. The uterus portions of the upper abdomen demonstrate to unremarkable. IMPRESSION: No evidence for pulmonary embolism and/or significant thoracic aortic dissection. Mild elevation of the right hemidiaphragm with compressive atelectatic changes right lung base. Electronically signed by: Varghese Lerma MD 12/09/2021 2:01 AM CDT Due to temporary technical issues with the PACS/Fluency reporting system, reports are being signed by the in house radiologists without review as a courtesy to insure prompt reporting. The interpreting radiologist is fully responsible for the content of the report.
[2021-12-10 16:40] VITALS: TEMP 98.4
[2021-12-10 16:43] VITALS: BP 112/79
[2021-12-10 16:46] VITALS: O2SAT 96
== END 2021-12-09 03:04 | disposition home or self-care (01) ==
LOC: ER 21:52
DX: R05.9 Cough, unspecified (principal); R06.02 Shortness of breath; F17.210 Nicotine dependence, cigarettes, uncomplicated; I10 Essential (primary) hypertension
CPT/HCPCS: 93005; 85025; 80048; 36415; 83735; 85610; 85379; 80076; 84484; 83880; 71275; 71045; 94640; 96375; 96374; 99285; Q9967; J2550; J2920